=== PATIENT | female | born 1940 | race Caucasian/White ===

== ENCOUNTER 2016-05-20 16:17 | Inpatient (IN) | payer OTHER, MEDICARE ==
[~2016-05-20] VITALS: Ht 154.9 cm; Wt 56.5 kg
[2016-05-20 17:16] LABS: EOSINOPHIL (%) 0.3 % (0-5); HEMATOCRIT 36.6 % (36.0-46.0); IMMATURE GRANULOCYTE (%) 0.2 % (0.0-0.7); IMMATURE GRANULOCYTE COUNT 0.3 K/uL; LYMPHOCYTE COUNT 0.7 K/uL (1.0-2.8); MCH 30.4 PG (29.0-34.0); MCHC 32.2 G/DL (30.0-36.0); MCV 94.3 FL (83-99); MEAN PLAT.VOLUME 8.7 uM^3 (9.5-12.4); MONOCYTE (%) 4.4 % (3-12); MONOCYTE COUNT 0.6 K/uL (0-0.8); NEUTROPHIL COUNT 13.2 K/uL (1.8-6.4); PLATELET COUNT 229 K/uL (156-360); RBC DIS.WIDTH-CV 14.2 % (11.8-14.6); RBC DIS.WIDTH-SD 46.5 % (39-53); RED BLOOD COUNT 3.88 M/uL (3.80-5.20); WHITE BLOOD COUNT 14.6 K/uL (4.1-10.2)
[2016-05-20 17:30] LABS: CHLORIDE 102 mEq/L (99-109); POTASSIUM 3.7 mEq/L (3.7-5.4); SODIUM 140 mEq/L (136-147)
[2016-05-20 17:32] LABS: GLUCOSE 158 mg/dL (70-99)
[2016-05-20 17:33] LABS: ANION GAP 16 MEQ/L (2-14)
[2016-05-20 17:34] LABS: TOTAL BILIRUBIN 0.5 mg/dL (0.0-1.0)
[2016-05-20 17:36] LABS: ALKALINE PHOSPHATASE 68 IU/L (3-129); GFR ESTIMATE (CALCULATED) 51 mL/min/
[2016-05-20 17:37] LABS: UREA NITROGEN (BUN) 13 mg/dL (9-23)
[2016-05-20 17:39] LABS: TROP-I INTERPRETATION NEGATIVE; TROPONIN-I < 0.01 ng/mL (0.0-0.30)
[2016-05-20] MEDS ORDERED: METOPROLOL TART25 MG PO (20:19)
[2016-05-20] MEDS ORDERED: ATORVASTATIN CA10 MG PO (20:19)
[2016-05-20] MEDS ORDERED: CLONAZEPAM0.5 MG PO (20:19)
[2016-05-20] MEDS ORDERED: MELATONIN5 M1 PO (20:19)
[2016-05-20] MEDS ORDERED: SPIRIVA1 INHALATI IH (20:20)
[2016-05-20] MEDS ORDERED: ZOLOFT100 MG PO (20:20)
[2016-05-20] MEDS ORDERED: MULTIVITAMIN1 EAC2 PO (20:20)
[2016-05-20] MEDS ORDERED: SYMBICORT60 INHALAT IH (20:20)
[2016-05-20] MEDS ORDERED: VITAMIN B-122500 MCG SL (20:21)
[2016-05-20] MEDS ORDERED: DALIRESP500 MCG PO (20:21)
[2016-05-20] MEDS ORDERED: COLACE100 MG PO (20:21)
[2016-05-20] MEDS ORDERED: PREDNISONE10 MG PO (20:21)
[2016-05-20] MEDS ORDERED: SYNTHROID112 MCG PO (20:22)
[2016-05-20] MEDS ORDERED: KEPPRA500 MG PO (20:22)
[2016-05-20] MEDS ORDERED: SENNA8.6 MG PO (20:22)
[2016-05-20] MEDS ORDERED: LO-DOSE ASPIRIN81 M2 PO (20:23)
[2016-05-20] MEDS ORDERED: RANITIDINE HCL300 MG PO (20:23)
[2016-05-20] MEDS ORDERED: OS-CAL 500+D T1 EAC1 PO (20:23)
[2016-05-20] MEDS ORDERED: THEOPHYLLINE400 MG PO (20:23)
[2016-05-20] MEDS ORDERED: AUGMENTIN875 MG PO (20:24)
[2016-05-20] MEDS ORDERED: PROBIOTIC1 EAC1 PO (20:24)
[2016-05-20] MEDS ORDERED: PERCOCET 5/31 TABLET PO (20:25)
[2016-05-20] MEDS ORDERED: XANAX0.25 MG PO (20:25)
[2016-05-20] MEDS ORDERED: FLONASE16 G1 BOTH NARES (20:25)
[2016-05-20] MEDS ORDERED: DULCOLAX10 MG PR (20:26)
[2016-05-20] MEDS ORDERED: TUSSIN DM LIQU118 ML PO (20:26)
[2016-05-20] MEDS ORDERED: MIRALAX255 GM PO (20:26)
[2016-05-20] MEDS ORDERED: VENTOLIN HFA18 GM IH (20:26)
[2016-05-20] MEDS ORDERED: TYLENOL REGULA325 MG PO (20:27)
[2016-05-20] MEDS ORDERED: ZANAFLEX2 M1 PO (20:27)
[2016-05-20 20:53] LABS: BASE EXCESS -1.6 mEq/L (-3 to +3); BICARBONATE 25.1 mEq/L (22-26); CARBOXY HGB 1.2 % (0-5); METHEMOGLOBIN 1.2 % (0-1.5); PCO2 51 mm Hg (35-45); PO2 170 mm Hg (80-100)
[2016-05-20 20:54] LABS: COMMENTS - BLOOD GASES C+A+; DEVICE NRBM; FI02 100 %; O2 FLOW 15 L/MIN; SITE RR; TOTAL RESP RATE 30 resp/min
[2016-05-20 21:32] LABS: BASE EXCESS -0.7 mEq/L (-3 to +3); BICARBONATE 24.9 mEq/L (22-26); CARBOXY HGB 1.6 % (0-5); pH 7.36 (7.35-7.45)
[2016-05-20 21:33] LABS: COMMENTS - BLOOD GASES C+A+; DEVICE NIV; FI02 35 %; MODE SPONT; PCO2 44 mm Hg (35-45); PEEP 5 CM/H20; PO2 73 mm Hg (80-100); PRES. SUPPORT 14 CM/H2O; SITE RR; TOTAL RESP RATE 28 resp/min
[2016-05-21] VITALS (7 sets, daily range): BP systolic 111–139; BP diastolic 45–71
[2016-05-21 00:20] LABS: INFLUENZA A VIRAL ANTIGEN NEGATIVE; INFLUENZA B VIRAL ANTIGEN POSITIVE
[2016-05-21 00:23] LABS: TROP-I INTERPRETATION NEGATIVE; TROPONIN-I 0.14 ng/mL (0.0-0.30)
[2016-05-21 01:29] LABS: ADD MIUA? YES; BILIRUBIN NEGATIVE; BLOOD SMALL; COLOR YELLOW ((YELLOW)); GLUCOSE (STRIP) NEGATIVE; KETONES NEGATIVE; LEUKOCYTES NEGATIVE; NITRITE NEGATIVE; PH, URINE 7.5 (5-8); PROTEIN (STRIP) TRACE; SPECIFIC GRAVITY 1.029 (1.000-1.030); UROBILINOGEN 0.2 MG/DL (0.2-1.0)
[2016-05-21 04:07] LABS: AMORPHOUS PHOSPHATE CRYSTALS 1+; BACTERIA NONE SEEN; CASTS NONE SEEN /LPF; CRYSTALS PRESENT; EPITHELIAL CELLS NONE SEEN; MUCUS NONE SEEN; RED BLOOD CELLS 0-5 /HPF (0-5); UCUL ADDED? NO; WHITE BLOOD CELLS NONE SEEN /HPF (0-5)
[2016-05-21 05:09] LABS: CHLORIDE 110 mEq/L (99-109); POTASSIUM 3.8 mEq/L (3.7-5.4); SODIUM 142 mEq/L (136-147)
[2016-05-21 05:12] LABS: EOSINOPHIL (%) 0 % (0-5); GLUCOSE 126 mg/dL (70-99); HEMATOCRIT 33.9 % (36.0-46.0); IMMATURE GRANULOCYTE (%) 0.2 % (0.0-0.7); IMMATURE GRANULOCYTE COUNT 0.2 K/uL; LYMPHOCYTE COUNT 0.3 K/uL (1.0-2.8); MCH 29.9 PG (29.0-34.0); MCHC 31.3 G/DL (30.0-36.0); MCV 95.5 FL (83-99); MEAN PLAT.VOLUME 9.5 uM^3 (9.5-12.4); MONOCYTE (%) 2.2 % (3-12); MONOCYTE COUNT 0.3 K/uL (0-0.8); NEUTROPHIL (%) 94.5 % (45-76); NEUTROPHIL COUNT 10.8 K/uL (1.8-6.4); PLATELET COUNT 230 K/uL (156-360); RBC DIS.WIDTH-CV 14.4 % (11.8-14.6); RBC DIS.WIDTH-SD 47.5 % (39-53); RED BLOOD COUNT 3.55 M/uL (3.80-5.20); WHITE BLOOD COUNT 11.4 K/uL (4.1-10.2)
[2016-05-21 05:13] LABS: ANION GAP 10 MEQ/L (2-14)
[2016-05-21 05:14] LABS: TOTAL BILIRUBIN 0.4 mg/dL (0.0-1.0)
[2016-05-21 05:15] LABS: ALKALINE PHOSPHATASE 60 IU/L (3-129); GFR ESTIMATE (CALCULATED) > 59 mL/min/
[2016-05-21 05:17] LABS: DIRECT BILIRUBIN 0.2 mg/dL (0.0-0.3); UREA NITROGEN (BUN) 11 mg/dL (9-23)
[2016-05-21 05:42] LABS: TROP-I INTERPRETATION NEGATIVE; TROPONIN-I 0.14 ng/mL (0.0-0.30)
[2016-05-21 07:40] LABS: INTERNAL CONTROL VALID? YES
[2016-05-21 07:56] LABS: METH RESISTANT S AUREUS PCR POSITIVE (NEGATIVE)
[2016-05-21 07:57] LABS: PROBE CHECK PASS
[2016-05-22 05:35] VITALS: BP 117/50
[2016-05-22 08:48] VITALS: BP 121/47
[2016-05-22 12:22] VITALS: BP 111/94
[2016-05-22 15:53] VITALS: BP 137/58
[2016-05-22 19:45] VITALS: BP 141/67
[2016-05-22 23:20] VITALS: BP 159/66
[2016-05-23 03:05] VITALS: BP 154/69
[2016-05-23 07:30] VITALS: BP 110/60
[2016-05-23 12:17] VITALS: BP 120/68
[2016-05-23 15:32] VITALS: BP 115/68
[2016-05-23 19:30] VITALS: BP 163/61
[2016-05-23 23:11] VITALS: BP 162/75
[2016-05-24 03:50] VITALS: BP 140/67
[2016-05-24 07:13] LABS: HEMATOCRIT 31.8 % (36.0-46.0); MCH 30.7 PG (29.0-34.0); MCHC 32.4 G/DL (30.0-36.0); MCV 94.6 FL (83-99); MEAN PLAT.VOLUME 9.4 uM^3 (9.5-12.4); PLATELET COUNT 231 K/uL (156-360); RBC DIS.WIDTH-CV 14.4 % (11.8-14.6); RBC DIS.WIDTH-SD 49.6 % (39-53); RED BLOOD COUNT 3.36 M/uL (3.80-5.20); WHITE BLOOD COUNT 7.2 K/uL (4.1-10.2)
[2016-05-24 07:30] VITALS: BP 157/65
[2016-05-24 07:32] LABS: ANION GAP 7 MEQ/L (2-14); CHLORIDE 111 MEQ/L (99-109); GFR ESTIMATE (CALCULATED) > 59 mL/min/; GLUCOSE 107 mg/dL (70-99); POTASSIUM 4.5 MEQ/L (3.7-5.4); SAMPLE HEMOLYSIS CHECK 0; SAMPLE ICTERIC CHECK 0; SAMPLE LIPEMIA CHECK 0; SODIUM 143 MEQ/L (136-147)
[2016-05-24 07:39] LABS: UREA NITROGEN (BUN) 28 mg/dL (9-23)
[2016-05-24 11:58] VITALS: BP 140/57
[2016-05-24 16:17] VITALS: BP 160/63
[2016-05-24 19:26] VITALS: BP 155/70
[2016-05-24 23:38] VITALS: BP 156/68
[2016-05-25 04:16] VITALS: BP 164/73
[2016-05-25 08:00] VITALS: BP 164/77
[2016-05-25 16:30] VITALS: BP 148/68
[2016-05-25 20:45] VITALS: BP 177/76
[2016-05-26 00:09] VITALS: BP 155/68
[2016-05-26 06:04] VITALS: BP 162/69
[2016-05-26 08:57] VITALS: BP 138/65
[2016-05-26 11:48] VITALS: BP 127/56
[2016-05-26 16:12] VITALS: BP 149/64
[2016-05-26 23:02] VITALS: BP 146/65
[2016-05-27 07:20] LABS: HEMATOCRIT 34.9 % (36.0-46.0); MCH 29.5 PG (29.0-34.0); MCHC 31.5 G/DL (30.0-36.0); MCV 93.6 FL (83-99); MEAN PLAT.VOLUME 9.7 uM^3 (9.5-12.4); PLATELET COUNT 281 K/uL (156-360); RBC DIS.WIDTH-CV 14.5 % (11.8-14.6); RBC DIS.WIDTH-SD 49.6 % (39-53); RED BLOOD COUNT 3.73 M/uL (3.80-5.20)
[2016-05-27 07:21] LABS: WHITE BLOOD COUNT 9.7 K/uL (4.1-10.2)
[2016-05-27 07:42] LABS: ALKALINE PHOSPHATASE 41 IU/L (3-129); ANION GAP 8 MEQ/L (2-14); CHLORIDE 108 MEQ/L (99-109); GFR ESTIMATE (CALCULATED) 57 mL/min/; GLUCOSE 85 mg/dL (70-99); POTASSIUM 3.8 MEQ/L (3.7-5.4); SAMPLE HEMOLYSIS CHECK 0; SAMPLE ICTERIC CHECK 0; SAMPLE LIPEMIA CHECK 0; SODIUM 144 MEQ/L (136-147); TOTAL BILIRUBIN 0.2 MG/DL (0.0-1.0); UREA NITROGEN (BUN) 28 mg/dL (9-23)
[2016-05-27 07:54] LABS: EOSINOPHIL (%) 1.7 % (0-5); EOSINOPHIL COUNT 0.2 K/uL (0-0.3); HEMATOLOGY COMMENT 1 SMEAR COMPATIBLE; IMMATURE GRANULOCYTE (%) 4.7 % (0.0-0.7); IMMATURE GRANULOCYTE COUNT 0.5 K/uL; LYMPHOCYTE COUNT 1.3 K/uL (1.0-2.8); MONOCYTE (%) 7.8 % (3-12); MONOCYTE COUNT 0.8 K/uL (0-0.8); NEUTROPHIL (%) 71.8 % (45-76); USER ID CCL
[2016-05-27 09:40] VITALS: BP 130/62
[2016-05-27 17:10] VITALS: BP 120/60
[2016-05-27 23:08] VITALS: BP 144/74
[2016-05-28 06:32] LABS: HEMATOCRIT 35.5 % (36.0-46.0); MCH 29.8 PG (29.0-34.0); MCHC 31.8 G/DL (30.0-36.0); MCV 93.7 FL (83-99); MEAN PLAT.VOLUME 9.7 uM^3 (9.5-12.4); PLATELET COUNT 280 K/uL (156-360); RBC DIS.WIDTH-CV 14.6 % (11.8-14.6); RBC DIS.WIDTH-SD 49.6 % (39-53); RED BLOOD COUNT 3.79 M/uL (3.80-5.20); WHITE BLOOD COUNT 9.2 K/uL (4.1-10.2)
[2016-05-28 06:59] LABS: ANION GAP 9 MEQ/L (2-14); CHLORIDE 108 MEQ/L (99-109); GFR ESTIMATE (CALCULATED) > 59 mL/min/; GLUCOSE 82 mg/dL (70-99); POTASSIUM 3.9 MEQ/L (3.7-5.4); SAMPLE HEMOLYSIS CHECK 0; SAMPLE ICTERIC CHECK 0; SAMPLE LIPEMIA CHECK 0; SODIUM 142 MEQ/L (136-147); UREA NITROGEN (BUN) 30 mg/dL (9-23)
[2016-05-28 08:32] LABS: ABS NEUTROPHIL COUNT 6.61; EOSINOPHIL (%) 2.4 % (0-5); EOSINOPHIL ABS CT 0.09; EOSINOPHIL COUNT 0.2 K/uL (0-0.3); IMMATURE GRANULOCYTE (%) 7.3 % (0.0-0.7); IMMATURE GRANULOCYTE COUNT 0.7 K/uL; LYMPHOCYTE COUNT 1.2 K/uL (1.0-2.8); MONOCYTE COUNT 0.7 K/uL (0-0.8); NEUTROPHIL COUNT 6.3 K/uL (1.8-6.4); PLAT.SUFFICIENCY ADEQUATE; USER ID CL
[2016-05-28 09:31] VITALS: BP 120/50
[2016-05-28] MEDS ORDERED: BENZONATATE100 MG PO (11:45)
== END 2016-05-28 14:13 | disposition home health service (06) | DRG 190 ==
LOC: EME → EDBD 16:17 → EME 16:17 → 4EAST 20:38 → EDOF 20:38 → 4EAST 05-21 00:47 → 5EAST 05-26 15:12
PROVIDERS: Emergency Medicine; Hospitalist; Internal Medicine; Internal Medicine Pulmonary Disease
DX: J44.0 Chronic obstructive pulmonary disease with (acute) lower respiratory infection (principal); J96.21 Acute and chronic respiratory failure with hypoxia; J10.08 Influenza due to other identified influenza virus with other specified pneumonia; J18.8 Other pneumonia, unspecified organism; I47.1 Supraventricular tachycardia; J44.1 Chronic obstructive pulmonary disease with (acute) exacerbation; I10 Essential (primary) hypertension; E78.5 Hyperlipidemia, unspecified; G40.909 Epilepsy, unspecified, not intractable, without status epilepticus; I48.92 Unspecified atrial flutter; F33.1 Major depressive disorder, recurrent, moderate; Z87.891 Personal history of nicotine dependence; I25.10 Atherosclerotic heart disease of native coronary artery without angina pectoris; Z95.5 Presence of coronary angioplasty implant and graft; J20.9 Acute bronchitis, unspecified; Z99.81 Dependence on supplemental oxygen; E03.9 Hypothyroidism, unspecified; M16.11 Unilateral primary osteoarthritis, right hip; R94.31 Abnormal electrocardiogram [ECG] [EKG]; F41.9 Anxiety disorder, unspecified; Z66 Do not resuscitate
CPT/HCPCS: 36600; 71010; 71275; 80048; 80053; 80076; 81003; 82803; 83605; 83880; 84100; 84439; 84443; 84484; 85025; 85027; 87040; 87070; 87205; 87449; 87502; 87641; 93005; 93306; 94002; 94640; 94640 76; 94644; 94760; 94799; 97530 GO; 97530 GP; 99202; 99281; 99285; J0696; J1100; J1644; J1956; J2405; J2930; J7030; J7050; J7512; J7644

== ENCOUNTER 2016-10-08 08:40 | Inpatient (IN) | payer OTHER, MEDICARE ==
[~2016-10-08] VITALS: Ht 154.9 cm; Wt 59.4 kg
[2016-10-08] VITALS (14 sets, daily range): BP systolic 74–111; BP diastolic 47–69
[~2016-10-08 08:40] MED LIST: ATORVASTATIN CA10 MG PO; AUGMENTIN875 MG PO; BENZONATATE100 MG PO; CLONAZEPAM0.5 MG PO; COLACE100 MG PO; DALIRESP500 MCG PO; DULCOLAX10 MG PR; FLONASE16 G1 BOTH NARES; KEPPRA500 MG PO; LO-DOSE ASPIRIN81 M2 PO; MELATONIN5 M1 PO; METOPROLOL TART25 MG PO; MIRALAX255 GM PO; MULTIVITAMIN1 EAC2 PO; OS-CAL 500+D T1 EAC1 PO; PERCOCET 5/31 TABLET PO; PREDNISONE10 MG PO; PROBIOTIC1 EAC1 PO; RANITIDINE HCL300 MG PO; SENNA8.6 MG PO; SPIRIVA1 INHALATI IH; SYMBICORT60 INHALAT IH; SYNTHROID112 MCG PO; THEOPHYLLINE400 MG PO; TUSSIN DM LIQU118 ML PO; TYLENOL REGULA325 MG PO; VENTOLIN HFA18 GM IH; VITAMIN B-122500 MCG SL; XANAX0.25 MG PO; ZANAFLEX2 M1 PO; ZOLOFT100 MG PO
[2016-10-08 09:52] LABS: BASOPHIL COUNT 0.1 K/uL (0-0.1); EOSINOPHIL COUNT 0.2 K/uL (0-0.3); HEMATOCRIT 41.5 % (36.0-46.0); IMMATURE GRANULOCYTE (%) 0.5 % (0.0-0.7); INSTRUMENT ABS NEUTROPHIL CT 6.5 K/uL; LYMPHOCYTE COUNT 0.9 K/uL (1.0-2.8); MCH 29.6 PG (29.0-34.0); MCHC 30.8 G/DL (30.0-36.0); MCV 95.8 FL (83-99); MEAN PLAT.VOLUME 8.9 uM^3 (9.5-12.4); MONOCYTE (%) 5.1 % (3-12); MONOCYTE COUNT 0.4 K/uL (0-0.8); NEUTROPHIL (%) 80.4 % (45-76); NEUTROPHIL COUNT 6.5 K/uL (1.8-6.4); PLATELET COUNT 250 K/uL (156-360); RBC DIS.WIDTH-SD 52.7 % (39-53); RED BLOOD COUNT 4.33 M/uL (3.80-5.20); WHITE BLOOD COUNT 8.1 K/uL (4.1-10.2)
[2016-10-08 10:02] LABS: CHLORIDE 108 mEq/L (99-109); POTASSIUM 4.3 mEq/L (3.7-5.4); SODIUM 145 mEq/L (136-147)
[2016-10-08 10:04] LABS: GLUCOSE 136 mg/dL (70-99)
[2016-10-08 10:06] LABS: ANION GAP 12 MEQ/L (2-14); TOTAL BILIRUBIN 0.4 mg/dL (0.0-1.0)
[2016-10-08 10:08] LABS: ALKALINE PHOSPHATASE 67 IU/L (3-129); GFR ESTIMATE (CALCULATED) 51 mL/min/
[2016-10-08 10:09] LABS: UREA NITROGEN (BUN) 14 mg/dL (9-23)
[2016-10-08 10:13] LABS: TROP-I INTERPRETATION POSITIVE; TROPONIN-I 0.91 ng/mL (0.0-0.30)
[2016-10-08 11:34] LABS: INTER. NORMALIZED RATIO 1.1; PROTHROMBIN TIME 10.8 (9.2-11.2); PTT 25.1 (25-32)
[2016-10-08] MEDS ORDERED: ALBUTEROL2.5 MG/3 M IH (12:19)
[2016-10-08] MEDS ORDERED: MUCUS RELIEF600 M1 PO (12:19)
[2016-10-08] MEDS ORDERED: LIDOCAINE700 MG TD (12:20)
[2016-10-08] MEDS ORDERED: ZANAFLEX2 MG PO (13:38)
[2016-10-08] MEDS ORDERED: SENNA8.6 MG PO (13:38)
[2016-10-08 18:52] LABS: BASE EXCESS -10.8 mEq/L (-3 to +3); BICARBONATE 20.2 mEq/L (22-26); CARBOXY HGB 2.2 % (0-5); COMMENTS - BLOOD GASES C+A+; DEVICE HFNC; METHEMOGLOBIN 1.4 % (0-1.5); O2 FLOW 10 L/MIN; PCO2 68 mm Hg (35-45); PO2 73 mm Hg (80-100); SITE RR; TOTAL RESP RATE 20 resp/min
[2016-10-08 18:53] LABS: pH 7.08 (7.35-7.45)
[2016-10-08 18:57] LABS: TROP-I INTERPRETATION POSITIVE; TROPONIN-I 9.02 ng/mL (0.0-0.30)
[2016-10-08 20:33] LABS: BASE EXCESS -12.1 mEq/L (-3 to +3); CARBOXY HGB 1.8 % (0-5); METHEMOGLOBIN 1.2 % (0-1.5); PCO2 50 mm Hg (35-45); PO2 60 mm Hg (80-100); SITE RR; pH 7.14 (7.35-7.45)
[2016-10-08 20:34] LABS: COMMENTS - BLOOD GASES C+; DEVICE MASK VENT; FI02 30 %; MODE SPONT; PEEP 10 CM/H20; PRES. SUPPORT 15 CM/H2O; TOTAL RESP RATE 22 resp/min
[2016-10-08 21:58] LABS: METH RESISTANT S AUREUS PCR POSITIVE (NEGATIVE)
[2016-10-08 22:03] LABS: PROBE CHECK PASS
[2016-10-09 07:42] LABS: INTERNAL CONTROL VALID? YES
[2016-10-09 08:32] LABS: ADD MIUA? YES; BILIRUBIN NEGATIVE; BLOOD LARGE; COLOR YELLOW ((YELLOW)); GLUCOSE (STRIP) NEGATIVE; KETONES NEGATIVE; LEUKOCYTES MODERATE; NITRITE NEGATIVE; PROTEIN (STRIP) 30; SPECIFIC GRAVITY 1.019 (1.000-1.030); UROBILINOGEN 0.2 MG/DL (0.2-1.0)
[2016-10-09 08:43] LABS: BACTERIA RARE /HPF; EPITHELIAL CELLS RARE /HPF; MUCUS TRACE /LPF; RED BLOOD CELLS TNTC /HPF (0-5); UCUL ADDED? NO; WHITE BLOOD CELLS 30-40 /HPF (0-5)
== END 2016-10-08 23:53 | DRG 190 ==
LOC: EME 08:40 → 4EAST 11:30 → EDOF 11:30 → 4EAST 14:37 → 4WEST 19:30
PROVIDERS: Emergency Medicine; Internal Medicine; Internal Medicine Nephrology; Internal Medicine Pulmonary Disease; Psychiatry & Neurology Neurology
PROC: 03HY32Z Insertion of Monitoring Device into Upper Artery, Percutaneous Approach (ICD-10-PCS; principal; 2016-10-08)
DX: J44.1 Chronic obstructive pulmonary disease with (acute) exacerbation (principal); J18.9 Pneumonia, unspecified organism; J96.00 Acute respiratory failure, unspecified whether with hypoxia or hypercapnia; J84.9 Interstitial pulmonary disease, unspecified; I46.9 Cardiac arrest, cause unspecified; I25.9 Chronic ischemic heart disease, unspecified; E86.0 Dehydration; R09.02 Hypoxemia; I25.10 Atherosclerotic heart disease of native coronary artery without angina pectoris; M16.10 Unilateral primary osteoarthritis, unspecified hip; Z66 Do not resuscitate; I10 Essential (primary) hypertension; E78.5 Hyperlipidemia, unspecified; E03.9 Hypothyroidism, unspecified; G40.909 Epilepsy, unspecified, not intractable, without status epilepticus; Z99.81 Dependence on supplemental oxygen; Z87.891 Personal history of nicotine dependence; Z95.5 Presence of coronary angioplasty implant and graft; Z90.49 Acquired absence of other specified parts of digestive tract; I50.9 Heart failure, unspecified
CPT/HCPCS: 36600; 71010; 71275; 80053; 81003; 82803; 83605; 84443; 84484; 85025; 85610; 85730; 87040; 87070; 87205; 87449; 87493; 87506; 87641; 93005; 94002; 94640; 94640 76; 94667; 94799; 99202; 99281; 99285; J0696; J2270; J2405; J2930; J7030; J7050